=== PATIENT | female | born 2000 ===

== ENCOUNTER 2018-02-17 15:37 | Emergency (ER) | payer OTHER ==
[2018-02-17 15:54] VITALS: BP 120/64
[2018-02-17] MEDS ORDERED: Lidocaine 2% PF * 5 ML VIAL INJ ONE (16:04)
--- NOTE | 2018-02-17 16:06 | UC ---
Laceration HPI - HPI Summary HPI Summary: pt was water skiing and ski hit her head and cut it at 2:30P TODAY. no LOC ( confirmed by friend in attendance) pt denies headache or dizziness. - History Of Current Complaint Chief Complaint: UCHeadInjury Stated Complaint: HEAD INJURY Time Seen by Provider: 02/17/18 15:46 Hx Obtained From: Patient Hx Last Menstrual Period: 01/19/18 Laceration Location: Head Mechanism Of Injury: Blunt Trauma Onset/Duration: Sudden Onset Severity: Mild Pain Intensity: 0 Aggravating Factors: Nothing - Allergies/Home Medications Allergies/Adverse Reactions: Allergies Allergy/AdvReac Type Severity Reaction Status Date / Time No Known Allergies Allergy Verified 02/17/18 15:48 Home Medications: Home Medications NK [No Home Medications Reported] 02/17/18 [History Confirmed 02/17/18] PMH/Surg Hx/FS Hx/Imm Hx Previously Healthy: Yes - Surgical History Surgical History: None - Family History Known Family History: Positive: None - Social History Occupation: Student Lives: With Family Alcohol Use: None Substance Use Type: None Smoking Status (MU): Never Smoked Tobacco - Immunization History Vaccination Up to Date: Yes Review of Systems Constitutional: Negative Respiratory: Negative Cardiovascular: Negative Musculoskeletal: Negative Neurological: Negative Psychological: Negative Is Patient Immunocompromised?: No All Other Systems Reviewed And Are Negative: Yes Physical Exam Triage Information Reviewed: Yes Appearance: Well-Appearing, No Pain Distress, Well-Nourished Vital Signs: Initial Vital Signs Temp 99.1 F 02/17/18 15:49 Pulse 73 02/17/18 15:49 Resp 18 02/17/18 15:49 BP 120/64 02/17/18 15:49 Pulse Ox 97 02/17/18 15:49 Vital Signs Reviewed: Yes Eyes: Positive: Conjunctiva Clear Neck exam: Normal Neck: Positive: Supple, Nontender Respiratory Exam: Normal Cardiovascular Exam: Normal Neurological Exam: Normal Neurological: Positive: Alert Psychological Exam: Normal Skin Exam: Other - 1.5 cm posterior scalp lac. bleeding controlled Laceration Course/Dx - Differential Dx - Laceration/Wound Differental Diagnoses: Avulsion, Laceration, Other - head injury/concussion Provider Diagnoses: scalp laceration Discharge - Sign-Out/Discharge Documenting (check all that apply): Discharge/Admit/Transfer - Discharge Plan Condition: Good Disposition: HOME Patient Education Materials: Laceration (ED) Referrals: No Primary Care Phys,NOPCP [Primary Care Provider] - Additional Instructions: keep area clean and dry apply ice packs for pain report signs of infection have yudy removed in 10 days - Billing Disposition and Condition Condition: GOOD Disposition: Home
== END 2018-02-17 16:35 | disposition home or self-care (01) ==
LOC: UCEAST 15:37
DX: S01.01XA Laceration without foreign body of scalp, initial encounter (principal); W20.8XXA Other cause of strike by thrown, projected or falling object, initial encounter; Y93.17 Activity, water skiing and wake boarding; Y99.9 Unspecified external cause status
CPT/HCPCS: 12001; 99201; G0463